=== PATIENT | female | born 1960 | race Caucasian/White ===

== ENCOUNTER 2019-01-03 09:00 | Inpatient (IN) | payer OTHER ==
[~2019-01-03] VITALS: Ht 167.6 cm; Wt 5.0 kg
[2019-01-03] MEDS ORDERED: SYNTHROID125 MCG PO (09:51)
[2019-01-03] MEDS ORDERED: FOLGARD TABLET1 EACH PO (09:52)
[2019-01-03] MEDS ORDERED: SYNTHROID137 MCG PO (09:52)
[2019-01-03] MEDS ORDERED: CALCI-CHEW500 MG PO (09:53)
[2019-01-13] MEDS ORDERED: HYOSCYAMINE0.125 M1 SL (08:39)
[2019-01-13] MEDS ORDERED: OXYC1TAB9 PO (08:40)
[2019-01-13] MEDS ORDERED: Intestinex CAP PO (08:40)
== END 2019-01-13 10:53 | disposition home or self-care (01) | DRG 330 ==
LOC: SURH 01-10 07:40 → O/R 01-10 07:40 → SURH 01-10 09:00 → MEDJ 01-10 16:11 → SURH 01-10 16:13
PROVIDERS: ADMIT Surgery
PROC: 0DJD8ZZ Inspection of Lower Intestinal Tract, Via Natural or Artificial Opening Endoscopic (ICD-10-PCS; 2019-01-10)
PROC: 0DTN4ZZ Resection of Sigmoid Colon, Percutaneous Endoscopic Approach (ICD-10-PCS; principal; 2019-01-10 12:30)
DX: K57.30 Diverticulosis of large intestine without perforation or abscess without bleeding (principal); K56.690 Other partial intestinal obstruction; N73.6 Female pelvic peritoneal adhesions (postinfective); E03.8 Other specified hypothyroidism; R73.01 Impaired fasting glucose

== ENCOUNTER 2019-08-16 09:15 | Day surgery (SDC) | payer OTHER ==
[~2019-08-16 09:15] MED LIST: CALCI-CHEW500 MG PO; FOLGARD TABLET1 EACH PO; HYOSCYAMINE0.125 M1 SL; Intestinex CAP PO; OXYC1TAB9 PO; SYNTHROID125 MCG PO; SYNTHROID137 MCG PO
== END 2019-08-16 14:00 | disposition home or self-care (01) ==
LOC: AMB-ENDOS 09:15
DX: K57.30 Diverticulosis of large intestine without perforation or abscess without bleeding (principal)